=== PATIENT | female | born 1955 | race Caucasian/White ===

== ENCOUNTER 2024-10-02 09:18 | Outpatient (REF) | payer MEDICARE, SELFPAY | END 2024-10-02 09:19 | disposition home or self-care (01) | LOC: HO.LAB 09:18 | PROVIDERS: PCP Internal Medicine; Visit Provider Surgery | DX: L02.212 Cutaneous abscess of back [any part, except buttock and flank] (principal); B95.62 Methicillin resistant Staphylococcus aureus infection as the cause of diseases classified elsewhere | CPT/HCPCS: 10060; 10061; 87070; 87077; 87186; 87205; 99202; J2004 ==

== ENCOUNTER 2024-10-02 09:18 | Outpatient (AMB) | payer MEDICARE, SELFPAY ==
--- NOTE | 2024-10-02 09:19 | MHC.OFFVIS ---
Vital Signs 10/02/24 09:20 Height 5 ft 4 in Weight 136 lb 10.986 oz BMI 23.5 Blood Pressure Location Lt brachial Position Sitting Intake Visit Reasons: Pilonidal cyst Allergies atorvastatin [From Lipitor] Allergy (Mild, Verified 10/02/24 09:21) Unknown midazolam [From Versed] Allergy (Mild, Verified 10/02/24 09:21) Unknown Sulfa (Sulfonamide Antibiotics) Allergy (Mild, Verified 10/02/24 09:21) Unknown diphenhydramine Adverse Reaction (Mild, Verified 10/02/24 09:21) Unknown Medication List - Last Reconciled 10/02/24 by Alfred Caceres MD atenolol mg PO duloxetine mg PO DAILY ezetimibe mg PO DAILY levofloxacin 500 mg PO DAILY metformin mg PO DAILY simvastatin mg PO simvastatin mg PO trazodone mg PO HPI Comments Details: Patient presents with a right lower back abscess. 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 She thinks this is a recurrence of this. She was given antibiotics by her medical doctor last week. Because of progression of symptoms which include purulent discharge she presents here for further evaluation. Chart was reviewed and patient evaluated [facility] Medical History (Updated 10/01/24 @ 09:24 by DULCE Hollins) Strain of muscle(s) and tendon(s) of the rotator cuff of right shoulder, initial encounter Myalgia Cutaneous abscess of buttock Cellulitis of buttock Low back pain Obstructive sleep apnea Tobacco abuse counseling Abnormal weight loss Encounter for therapeutic drug level monitoring Unspecified fracture of shaft of left fibula, subsequent encounter for closed fracture with nonunion Other fracture of left lower leg, sequela Generalized anxiety disorder Nicotine dependence, cigarettes, uncomplicated Hyperlipidemia Physical Exam Vital Signs: BMI result Body Mass Index 23.5 Back/Spine/Pelvis Other: Patient was a large complex right lower back abscess. Office Procedures I&D Drain Details: Risks, benefits, alternatives of incision and drainage of right lower back complex abscess were reviewed with the patient and included but not limited to bleeding recurrence, numbness, pain, scarring the patient wished to proceed. All questions answered. After appropriate positioning, patient underwent 1% lidocaine and Betadine prep and uneventfully incision and drainage of the roughly 3 x 3 cm complex right lower back abscess. Copious amounts permanent serial retrieved. Cultures were obtained. Necrotic debris was debrided. Wound was irrigated, secured hemostasis, packed, and dressing applied. Patient tolerated procedure well. [id number] of Skin Abscess, complex All charges added?: Procedure code (CPT) selection complete Office Meds lidocaine 1 %-epinephrine 1:100,000 injection solution Performing Provider: Alfred Caceres MD Performing Location: [facility] Administered by: Alfred Caceres MD on 10/02/24 10:10 Dose Route Admin Location Dispensed Lot Number Expiration Date [facility] Power System Operator 10 mL Infiltration 10 mL Assessment & Plan Assessment & Plan (1) Abscess: Code(s): L02.91 - Cutaneous abscess, unspecified Category: Surgical Plan: Patient was continued antibiotics provided by her medical doctor, been given a script for analgesics, we will have Ayden our office nurse arranged for packing changes, and we will follow up as directed or p.r.n.. All questions answered. Orders: Orders AMB Incision & Drainage Today L02.91 - Cutaneous abscess, unspecified Routine Culture w Gram Stain Today L05.01 - Pilonidal cyst with abscess Medications: New lidocaine-epinephrine 1 %-1:100,000 10 mL Infiltration ONCE 10 mL 0RF L02.91 - Cutaneous abscess, unspecified hydrocodone-acetaminophen 5-325 mg Partial Fill upon patient request. 1 tab PO Q4-6H PRN 30 tabs 0RF pain Coding Level of Care Code New Pt Level 5 (20431) Diagnoses Abscess L02.91 CPT Codes I&D Drain - Drain 2: [id number] of Skin Abscess, complex ([id number])
[2024-10-02 09:20] VITALS: BMI 23.5
== END 2024-10-02 09:55 | disposition home or self-care (01) ==
PROVIDERS: PCP Internal Medicine; Visit Provider Surgery
DX: L02.91 Cutaneous abscess, unspecified (principal)
CPT/HCPCS: 10060; 99204

== ENCOUNTER → 2024-10-03 10:56 | Outpatient (BNVA) | payer MEDICARE, SELFPAY | PROVIDERS: PCP Internal Medicine; Visit Provider Surgery | DX: Z48.01 Encounter for change or removal of surgical wound dressing (principal); Z98.890 Other specified postprocedural states | CPT/HCPCS: 99211 ==

== ENCOUNTER 2024-10-20 11:32 | Outpatient (AMB) | payer MEDICARE, SELFPAY ==
--- NOTE | 2024-10-20 11:34 | MHC.OFFVIS ---
Intake Visit Reasons: 2 wk follow up dressing change Intake Note: Patient here for 2wk follow up I&D pilonidal cyst abscess. Reports improvement. Patient c/o: no longer taking rx pain meds. Captain/Airline Pilot Required: No Accompanied by: Self / Same As Patient Allergies atorvastatin [From Lipitor] Allergy (Mild, Verified 10/20/24 11:37) Unknown midazolam [From Versed] Allergy (Mild, Verified 10/20/24 11:37) Unknown Sulfa (Sulfonamide Antibiotics) Allergy (Mild, Verified 10/20/24 11:37) Unknown diphenhydramine Adverse Reaction (Mild, Verified 10/20/24 11:37) Unknown HPI Comments Details: Patient presents for follow-up status post I&D of sri cleft area abscess. Her symptoms have markedly improved. [facility] Medical History (Updated 10/01/24 @ 09:24 by DULCE Hollins) Strain of muscle(s) and tendon(s) of the rotator cuff of right shoulder, initial encounter Myalgia Cutaneous abscess of buttock Cellulitis of buttock Low back pain Obstructive sleep apnea Tobacco abuse counseling Abnormal weight loss Encounter for therapeutic drug level monitoring Unspecified fracture of shaft of left fibula, subsequent encounter for closed fracture with nonunion Other fracture of left lower leg, sequela Generalized anxiety disorder Nicotine dependence, cigarettes, uncomplicated Hyperlipidemia Physical Exam Back/Spine/Pelvis Other: Patient has near complete healing of the wound. Overlying eschar. No evidence of any cellulitis or residual abscess. Assessment & Plan Assessment & Plan (1) Status post incision and drainage: Code(s): Z98.890 - Other specified postprocedural states Category: Medical Plan At present, patient was continue local wound therapy and will otherwise follow-up p.r.n.. All questions answered. Should this or other abscesses develop or recur, patient was instructed to contact the office and not let them get to the extreme that this last abscess was. She understands. All questions answered. Coding Level of Care Code Global (93857) Diagnoses Status post incision and drainage Z98.890
== END 2024-10-20 11:42 | disposition home or self-care (01) ==
LOC: HO.HGS 11:33
PROVIDERS: PCP Internal Medicine; Visit Provider Surgery
DX: Z98.890 Other specified postprocedural states (principal)
CPT/HCPCS: 99024

== ENCOUNTER → 2024-10-20 11:32 | Outpatient (BNVA) | payer MEDICARE, SELFPAY | PROVIDERS: PCP Internal Medicine; Visit Provider Surgery | DX: Z09 Encounter for follow-up examination after completed treatment for conditions other than malignant neoplasm (principal); Z87.2 Personal history of diseases of the skin and subcutaneous tissue; Z98.890 Other specified postprocedural states | CPT/HCPCS: 99212 ==